=== PATIENT | male | born 1975 | race Caucasian/White ===

== ENCOUNTER → 2016-08-12 14:00 | Outpatient (CLI) | payer MEDICAID ==
[2014-12-06 08:04] VITALS: BMI 31.6
[~2016-08-12 14:00] MED LIST: AMBIEN10 MG PO; AMOXICILLIN500 M1 PO; COZAAR25 MG PO; HYDROCODONE-APA1 TAB PO; MEDROL4 MG PO; ULORIC80 MG PO; XANAX1 MG PO
== END | disposition home or self-care (01) ==
LOC: D.CT 14:00
DX: R10.9 Unspecified abdominal pain (principal)

== ENCOUNTER 2016-10-25 09:55 | Emergency (ER) | payer MEDICAID ==
[2014-12-06 08:04] VITALS: BMI 31.6
== END 2016-10-25 12:09 | disposition home or self-care (01) ==
LOC: D.ER 09:55
DX: M79.675 Pain in left toe(s) (principal); M10.072 Idiopathic gout, left ankle and foot; I10 Essential (primary) hypertension; F41.9 Anxiety disorder, unspecified

== ENCOUNTER → 2018-06-30 14:52 | Outpatient (CLI) | payer MEDICAID ==
[2014-12-06 08:04] VITALS: BMI 31.6
== END | disposition home or self-care (01) ==
LOC: D.MRI 14:52
DX: M25.561 Pain in right knee (principal)

== ENCOUNTER 2018-12-04 10:51 | Emergency (ER) | payer MEDICAID ==
[~2018-12-04] VITALS: Ht 182.9 cm; Wt 113.6 kg
[2018-12-04 10:56] VITALS: Ht 182.9 cm; Wt 113.6 kg
[2018-12-04] MEDS ORDERED: KLONOPIN1 MG PO (11:35)
[2018-12-04] MEDS ORDERED: TIROSINT13 MCG PO (11:36)
[2018-12-04] MEDS ORDERED: UNKOWN BP MED (11:36)
[2018-12-04] MEDS ORDERED: TRAZODONE HCL300 MG PO (11:36)
[2018-12-04] MEDS ORDERED: ULORIC80 MG PO (11:37)
[2018-12-04] MEDS ORDERED: CYCLOBENZAPRINE10 MG PO (12:41)
[2018-12-04] MEDS ORDERED: EC-NAPROSYN500 MG PO (12:41)
[2018-12-04 12:42] LABS: CREATININE - SERUM 0.9 mg/dL (0.6-1.3)
[2018-12-04 13:02] VITALS: BP 134/69
== END 2018-12-04 13:03 | disposition home or self-care (01) ==
LOC: D.ER 10:51
PROVIDERS: Family Medicine
DX: S16.1XXA Strain of muscle, fascia and tendon at neck level, initial encounter (principal); V49.9XXA Car occupant (driver) (passenger) injured in unspecified traffic accident, initial encounter; Y93.89 Activity, other specified; Y92.410 Unspecified street and highway as the place of occurrence of the external cause; M79.18 Myalgia, other site; S00.03XA Contusion of scalp, initial encounter; S29.012A Strain of muscle and tendon of back wall of thorax, initial encounter

== ENCOUNTER 2020-01-08 12:19 | Emergency (ER) | payer MEDICAID ==
[~2020-01-08 12:19] MED LIST changes: +CYCLOBENZAPRINE10 MG PO; +EC-NAPROSYN500 MG PO; +KLONOPIN1 MG PO; +TIROSINT13 MCG PO; +TRAZODONE HCL300 MG PO; +UNKOWN BP MED
[2020-01-08 12:23] VITALS: Ht 182.9 cm
[2020-01-08 13:34] LABS: BASOPHILS 0.1 % (0-2); EOSINOPHILS 0.1 % (0-7); IMMATURE GRANULOCYTES 0.2 % (0-5); LYMPHOCYTES 14.8 % (15-50); MCH 31.8 pg (26.0-34.0); MCHC 34.1 g/dL (31.0-37.0); MCV 93.2 fL (80.0-100.0); MEAN PLATELET VOLUME 10.8 fL (7.4-10.4); MONOCYTES 13.1 % (2-11); NEUTROPHILS 71.7 % (40-80); PLATELET COUNT 233 10x3/uL (130-400); RBC 4.72 10x6/uL (4.20-6.10); RDW 13.2 % (11.5-14.5); WBC 13.7 10x3/uL (4.8-10.8)
[2020-01-08 13:46] LABS: ANION GAP 12.8 mmol/L (8-16); CALCIUM 8.5 mg/dL (8.5-10.1); CARBON DIOXIDE 29.1 mmol/L (21.0-32.0); CREATININE - SERUM 1.2 mg/dL (0.6-1.3); POTASSIUM - SERUM 3.9 mmol/L (3.5-5.1)
[2020-01-08 13:51] LABS: ALBUMIN 3.2 g/dL (3.4-5.0); BILIRUBIN - TOTAL 1.18 mg/dL (0.2-1.3); PROTEIN - SERUM 7.4 g/dL (6.4-8.2); URIC ACID 7.8 mg/dL (2.6-7.2)
[2020-01-08] MEDS ORDERED: PREDNISONE50 MG PO (15:07)
[2020-01-08 15:50] VITALS: BP 132/78
== END 2020-01-08 15:51 | disposition home or self-care (01) ==
LOC: D.ER 12:19
PROVIDERS: Family Medicine
DX: M10.9 Gout, unspecified (principal); M79.605 Pain in left leg; M79.604 Pain in right leg; I10 Essential (primary) hypertension

== ENCOUNTER 2020-11-22 19:00 | Emergency (ER) | payer MEDICAID ==
[~2020-11-22] VITALS: Ht 182.9 cm; Wt 119.5 kg
[~2020-11-22 19:00] MED LIST changes: +PREDNISONE50 MG PO
[2020-11-22 19:17] VITALS: Ht 182.9 cm; Wt 119.5 kg
[2020-11-22 21:02] VITALS: BP 130/72
== END 2020-11-22 21:03 ==
LOC: D.ER 19:00
DX: S00.93XA Contusion of unspecified part of head, initial encounter (principal); S40.011A Contusion of right shoulder, initial encounter; M54.89 Other dorsalgia; I10 Essential (primary) hypertension; Z72.0 Tobacco use; Y08.89XA Assault by other specified means, initial encounter; Y93.9 Activity, unspecified; Y92.9 Unspecified place or not applicable